=== PATIENT | male | born 1960 | race Caucasian/White ===

== ENCOUNTER 2024-09-29 10:46 | Inpatient (IN) ==
--- NOTE | 2024-09-29 11:06 | Emergency Department Note ---
Impression & Plan Symptomatic anemia, Acute on chronic blood loss anemia, GI bleed ED Provider Note NAME: CHARLETTE WRIGHT AGE: 64 SEX: M : 1960 ARRIVES VIA: Walk-In INFORMANT: Patient ED PROVIDER(S): Arthur Ambrocio DO CHIEF COMPLAINT: Black stools HPI: Patient is a 64-year-old male who presents ER for black stools which have been present for the past 3 weeks. He has a history of CML which was new in onset. He admits to worsening shortness of breath with exertion. He has coughed up a little bit of blood intermittently. Denies any blood thinners. No belly pain. No nausea, vomiting, or diarrhea. No dysuria, urgency, or frequency. No other exacerbating or remitting factors. ADDITIONAL HISTORY OBTAINED: Per HPI Chronic Medical/Social Conditions Affecting Care: Per HPI PAST MEDICAL HISTORY:See Below PAST SURGICAL HISTORY:See Below FAMILY HISTORY:See Below SOCIAL HISTORY:See Below HOME MEDICATIONS:See Below ALLERGIES:See Below VITALS:See Below PHYSICAL EXAMINATION: GENERAL: Sitting up in bed, alert, well appearing, well nourished, no distress, non-toxic EYE EXAM: normal conjunctiva. OROPHARYNX: mucous membranes are moist NECK: supple, no nuchal rigidity, no adenopathy, non-tender LUNGS: Clear to auscultation. Normal chest wall mechanics HEART: no murmurs, S1 normal and S2 normal ABDOMEN: abdomen soft, non-tender, normo-active bowel sounds, no masses, no rebound or guarding. RECTAL: HEM + black stool UPPER EXTREMITIES: upper extremities are grossly normal. LOWER EXTREMITIES: No pitting edema. NEURO EXAM: Normal sensorium, cranial nerves II-XII grossly intact, normal speech, no gross weakness of arms, no gross weakness of legs. MEDICAL DECISION MAKING: Patient is a 64-year-old male who presents ER for above-stated complaint. IV was established and blood work was obtained. Labs showed no significant leukocytosis. Mild anemia at 7.6 without previous to compare to. INR unremarkable. BMP with LFTs bilirubin and troponin was negative. Patient was typed and screened. He was placed on Protonix drip and bolus. Discussed case with the hospitalist for further evaluation management treatment. Consults/Care Managements Discussions: Per [facility] Triage Nursing notes reviewed. Limited review of prior medical records performed Vital Signs: reviewed and remarkable for no significant abnormalities Differential diagnosis: Differential diagnosis includes etiologies such as diverticulitis, diverticulosis, AVM, coagulopathy, colitis, inflammatory bowel disease, malignancy, Ann-Man tear, esophagitis, peptic ulcer disease, variceal bleed, gastritis, epistaxis, fissure, hemorrhoids, as well as others were entertained. ER treatment provided: See below Diagnostics interpreted by me include EKG and cardiac monitoring as listed below: -Cardiac Monitoring: An order was placed for continuous cardiac monitoring. The monitor shows a rate of 70 with sinus rhythm. -ECG: Sinus rhythm rate of 65 Normal axis No PVCs QTc 407 -Laboratory studies:Interpreted by me as stated above in MDM and shown below. Imaging studies: Xrays: As interpreted by me: Portable AP upright 1 view of the chest shows no focal Lutrate CTs show: none Procedures:none Critical Care: None Past Med/Surg History Problem List (Updated 09/29/24 @ 14:43 by Arthur Ambrocio DO) GI bleed (Acute) Symptomatic anemia (Acute) Epigastric pain Acute on chronic blood loss anemia (Acute) Dyspnea Medical History (Updated 09/29/24 @ 14:43 by Arthur Ambrocio DO) Eosinophilic asthma Prediabetes CKD (chronic kidney disease), stage III Chronic respiratory failure with hypoxia, on home O2 therapy Pulmonary fibrosis HTN (hypertension) Sleep apnea Iron deficiency anemia Chronic myeloid leukemia (CML), BCR/ABL-positive Surgical History (Updated 09/07/24 @ 12:04 by Rosi Cotto LPN) H/O colonoscopy 10+ yrs ago Social History (Updated 09/07/24 @ 12:05 by Rosi Cotto LPN) Smoking Status: Never smoker Do You Dip or Chew Tobacco: No; Hx Substance Use: No Shipwright Required: No Beliefs That Will Affect Care: None Feels Safe at Home: Yes Allergies Allergies Allergy/AdvReac Type Severity Reaction Status Date / Time bee venom protein (honey bee) Allergy Severe edema all Verified 09/29/24 11:33 over body modafinil Allergy Severe hallucinati Verified 09/29/24 11:33 ons atenolol Allergy Mild Verified 09/29/24 11:33 lisinopril AdvReac COUGH Unverified 09/29/24 11:33 Home Meds Home Medications Medication Instructions Recorded Confirmed allopurinol 300 mg tablet 300 mg PO QAM 09/07/24 09/29/24 amlodipine 5 mg tablet 2.5 mg PO BID 09/07/24 09/29/24 ascorbate calcium (vitamin C) 500 500 mg PO DAILY 09/07/24 09/29/24 mg tablet aspirin 81 mg chewable tablet 81 mg PO DAILY 09/07/24 09/29/24 carvedilol 6.25 mg tablet 6.25 mg PO BID 09/07/24 09/29/24 diphenoxylate-atropine 2.5 1 tab PO QID PRN diarrhea 09/07/24 09/29/24 mg-0.025 mg tablet escitalopram oxalate 10 mg tablet 10 mg PO DAILY 09/07/24 09/29/24 lorazepam 1 mg tablet 0.5 mg PO TID PRN Anxiety 09/07/24 09/29/24 metformin 500 mg tablet 500 mg PO BID 09/07/24 09/29/24 multivitamin 1 tab PO DAILY 09/07/24 09/29/24 omeprazole 40 mg capsule,delayed 40 mg PO DAILYBB 09/07/24 09/29/24 release tamsulosin 0.4 mg capsule (Flomax) 0.4 mg PO QAM 09/07/24 09/29/24 valsartan 320 mg tablet 320 mg PO QAM 09/07/24 09/29/24 albuterol sulfate 90 mcg/actuation 1 puff inhalation QID PRN 09/29/24 09/29/24 aerosol inhaler Shortness Of Breath Or Wheezing atorvastatin 20 mg tablet 20 mg PO QAM 09/29/24 09/29/24 chlorthalidone 25 mg tablet 25 mg PO QAM 09/29/24 09/29/24 ferrous sulfate 325 mg (65 mg 325 mg PO DAILY 09/29/24 09/29/24 iron) tablet venlafaxine 37.5 mg 37.5 mg PO QAM 09/29/24 09/29/24 capsule,extended release 24 hr Results & Data (ED) Vital Signs Vital Signs - 24 hr 09/29/24 10:50 09/29/24 11:12 09/29/24 11:15 Temperature 36.8 C Temperature Source Oral Pulse Rate 70 63 Pulse Rate [Apical] Respiratory Rate 18 Respiratory Effort / Characteristics Respiratory Depth Blood Pressure 120/70 Blood Pressure [Right Arm] Blood Pressure Mean 86 Blood Pressure Mean [Right Arm] Blood Pressure Position Sitting Blood Pressure Position [Right Arm] Pulse Oximetry 95 96 Oxygen Delivery Method Room Air Room Air Sepsis Recent Fever Within 48 Hours No Sepsis New/Unexplained Change in Mental Status No Sepsis Action Taken by Nursing No Action Required 09/29/24 12:47 Temperature Temperature Source Pulse Rate Pulse Rate [Apical] 63 Respiratory Rate 14 Respiratory Effort / Characteristics Non-Labored Spontaneous Respiratory Depth Normal Blood Pressure Blood Pressure [Right Arm] 148/83 H Blood Pressure Mean Blood Pressure Mean [Right Arm] 104 Blood Pressure Position Blood Pressure Position [Right Arm] Semi-fowlers Pulse Oximetry 99 Oxygen Delivery Method Room Air Sepsis Recent Fever Within 48 Hours Sepsis New/Unexplained Change in Mental Status Sepsis Action Taken by Nursing Laboratory Data 09/29/24 11:03 09/29/24 11:03 Lab Results 09/29/24 09/29/24 09/29/24 Range/Units 11:03 11:06 13:51 WBC 9.71 (4.8-10.8) K/ul RBC 2.36 L (4.70-6.10) M/uL Hgb 7.6 L (14.0-18.0) g/dl Hct 22.7 L (42.0-52.0) % MCV 96.2 (80.0-100.0) fL MCH 32.2 (25.0-34.0) pg MCHC 33.5 (32.0-36.0) g/dL RDW Std Deviation 58.9 H (36.4-46.3) fL RDW Coeff of Lyudmila 17.0 H (11.5-14.5) % Plt Count 288 (130-400) K/uL MPV 8.8 L (9.4-12.4) fL Immature Gran % (Auto) 2.6 % Neut % (Auto) 68.0 % Lymph % (Auto) 13.3 % [place] % (Auto) 11.3 % Eos % (Auto) 4.1 % Baso % (Auto) 0.7 % Reticulocyte % (Auto) 5.46 H (0.50-2.00) % Neut # (Auto) 6.60 H (1.40-6.50) K/uL Lymph # (Auto) 1.29 (1.20-3.40) K/uL [place] # (Auto) 1.10 H (0.11-0.59) K/uL Eos # (Auto) 0.40 (0.00-0.50) K/uL Baso # (Auto) 0.07 (0.00-0.20) K/uL Reticulocyte # 0.130 H (0.020-0.100) 10^6/uL Immature Gran # (Auto) 0.25 H (0.01-0.20) K/uL Polychromasia 1+ Immature Retic Fraction 24.8 H (2.3-15.9) % Retic Hgb Content 31.5 (28.2-36.6) pg PT 11.2 (9.0-12.0) Seconds INR 1.0 (0.9-1.1) Sodium 140 (136-145) mmol/L Potassium 3.8 (3.5-5.1) mmol/L Chloride 107 (98-107) mmol/L Carbon Dioxide 27 (21-32) mmol/L Anion Gap 6 (3-11) BUN 20 (6-23) mg/dl Creatinine 1.35 (0.6-1.4) mg/dl Est Cr Clr Drug Dosing 59.5 ml/min eGFR 57.90 BUN/Creatinine Ratio 14.8 (10-20) Glucose 125 H (70-99(Fasting)) mg/dl Calcium 9.7 (8.6-10.3) mg/dl Phosphorus 3.0 (2.5-4.9) mg/dl Magnesium 1.8 (1.7-2.4) mg/dl Iron 80 (35-175) mcg/dl TIBC 252 (250-450) mcg/dl Transferrin 180 L (200-360) mg/dl Transferrin % Sat 32 (20-50) % Ferritin 553.8 H (8-388) ng/ml Total Bilirubin 0.5 (0.2-1.0) mg/dl AST 16 (13-39) U/L ALT 14 (7-52) U/L Alkaline Phosphatase 107 H (34-104) U/L Lactate Dehydrogenase 184 (86-244) U/L Troponin I High Sens 4.4 (0-20) pg/ml Total Protein 7.5 (6.0-8.3) gm/dl Albumin 4.2 (3.4-5.0) gm/dl Globulin 3.3 (2.5-4.0) gm/dl Albumin/Globulin Ratio 1.3 (0.9-2) Lipase 118 H (11-82) U/L Vitamin B12 300 (180-914) pg/ml Folate 16.28 (>5.38) ng/ml Blood Type B Positive Blood Type Recheck B Positive Antibody Screen NEGATIVE Crossmatch See Detail Administered Medications Pantoprazole Sodium 40 mg/ (Dextrose) 100 mls @ 20 mls/hr IV Q5H ART Stop: 10/29/24 11:29 Last Admin: 09/29/24 11:54 Dose: 8 mg/hr, 20 mls/hr Documented By: RENETTA Sodium Chloride (Nss) 1,000 mls @ 80 mls/hr IV .[id number] ART Stop: 10/02/24 13:44 Last Admin: 09/29/24 14:23 Dose: 80 mls/hr Documented By: DANAE Discontinued Medications Pantoprazole Sodium 80 mg/ (Dextrose) 120 mls @ 480 mls/hr IV NOW ONE Stop: 09/29/24 11:16 Last Infusion: 09/29/24 11:54 Dose: Infused Documented By: Admin: 09/29/24 11:36 Dose: 480 mls/hr Documented By: RENETTA Pantoprazole Sodium (Pantoprazole Bolus/Drip) 1 each IV NOW STA Stop: 09/29/24 11:03 Last Admin: 09/29/24 11:34 Dose: Not Given Documented By: RENETTA Imaging Data Radiologist's Impression: Chest X-Ray 09/29/24 11:02 XR chest 1V portable HISTORY: 64 years-old Male Chest pain, nonspecific acute chest pain COMPARISON: None TECHNIQUE: AP view of the chest FINDINGS: Cardiac silhouette is upper limits of normal in size. No pneumothorax, pleural effusion or lobar airspace consolidation. Nonspecific interstitial coarsening. Cervical spinal fusion hardware. Bones appear grossly intact. IMPRESSION: 1. Cardiomegaly without overt pulmonary edema. 2. Nonspecific coarsening of the interstitium is likely chronic, however progressed from 2009. ACT 112: Negative or not required by law. The above report was generated using voice recognition software. It may contain grammatical, syntax or spelling errors. Electronically signed by: Anson Cortez M.D. 09/29/2024 11:34 AM Discharge Plan Visit Data Chief Complaint: Abnormal Labs/Diagnostic Testing Stated Complaint: REF BY DOC, ANEMIA, BLACK STOOL, TROUBLE BREATHING ED Provider: Arthur Ambrocio Discharge Problem: Symptomatic anemia, Acute on chronic blood loss anemia, GI bleed Condition: Fair Forms Stand Alone Forms: [facility] Prescriptions Prescriptions: No Action allopurinol 300 mg tablet 300 mg PO QAM amlodipine 5 mg tablet 2.5 mg PO BID Patient Comments: Originally written for 5mg by mouth daily. Spouse states pt takes 2.5mg by mouth twice daily - 09/29/24 aspirin 81 mg tablet,chewable 81 mg PO DAILY carvedilol 6.25 mg tablet 6.25 mg PO BID Rx Instructions: must administer with a meal/food diphenoxylate-atropine 2.5-0.025 mg tablet 1 tab PO QID PRN (Reason: diarrhea) escitalopram oxalate 10 mg tablet 10 mg PO DAILY tamsulosin [Flomax] 0.4 mg capsule 0.4 mg PO QAM lorazepam 1 mg tablet 0.5 mg PO TID PRN (Reason: Anxiety) metformin 500 mg tablet 500 mg PO BID Patient Comments: Originally written for 500mg by mouth daily. Spouse states pt takes 500mg by mouth twice daily - 09/29/24 multivitamin Tablet 1 tab PO DAILY omeprazole 40 mg capsule,delayed release(DR/EC) 40 mg PO DAILYBB valsartan 320 mg tablet 320 mg PO QAM ascorbate calcium (vitamin C) 500 mg tablet 500 mg PO DAILY venlafaxine 37.5 mg capsule,extended release 24hr 37.5 mg PO QAM atorvastatin 20 mg tablet 20 mg PO QAM chlorthalidone 25 mg tablet 25 mg PO QAM ferrous sulfate 325 mg (65 mg iron) Tablet 325 mg PO DAILY albuterol sulfate 90 mcg/actuation Hfa Aerosol Inhaler 1 puff INHALATION QID PRN (Reason: Shortness Of Breath Or Wheezing) Referrals Referrals: PCP,NO [Physician] - Discharge Problem: GI bleed Qualifiers: GI bleed type/associated pathology: unspecified gastrointestinal hemorrhage type Qualified Code(s): K92.2 - Gastrointestinal hemorrhage, unspecified
[2024-09-29 11:21] LABS: Hematocrit (blood only) 22.7 % (42.0-52.0); Hemoglobin 7.6 g/dl (14.0-18.0); Immature Granulocytes # (auto) 0.25 K/uL (0.01-0.20); Immature Granulocytes % (auto) 2.6 %; Mean Corpuscular Hemoglobin 32.2 pg (25.0-34.0); Mean Corpuscular Volume 96.2 fL (80.0-100.0); Platelet Count 288 K/uL (130-400); RDW Standard Deviation 58.9 fL (36.4-46.3); Red Blood Count 2.36 M/uL (4.70-6.10); White Blood Count 9.71 K/ul (4.8-10.8)
[2024-09-29] MEDS: PANTOPRAZOLE BOLUS/DRIP IV STA (11:34)
--- NOTE | 2024-09-29 11:35 | XRay Report ---
XR chest 1V portable HISTORY: 64 years-old Male Chest pain, nonspecific acute chest pain COMPARISON: None TECHNIQUE: AP view of the chest FINDINGS: Cardiac silhouette is upper limits of normal in size. No pneumothorax, pleural effusion or lobar airs pace consolidation. Nonspecific interstitial coarsening. Cervical spinal fusion hardware. Bones appea r grossly intact. IMPRESSION: 1. Cardiomegaly without overt pulmonary edema. 2. Nonspecific coarsening of the interstitium is likely chronic, however progressed from 2009. ACT 112: Negative or not required by law. The above report was generated using voice recognition software. It may contain grammatical, syntax o r spelling errors. Electronically signed by: Anson Cortez M.D. 09/29/2024 11:34 AM
[2024-09-29 11:39] LABS: Alanine Aminotransferase 14.0 U/L (7-52); Albumin Globulin Ratio 1.3 (0.9-2); Alkaline Phosphatase 107.0 U/L (34-104); Anion Gap 6.0 (3-11); Bilirubin,Total 0.5 mg/dl (0.2-1.0); Blood Urea Nitrogen 20.0 mg/dl (6-23); Calcium 9.7 mg/dl (8.6-10.3); Carbon Dioxide 27.0 mmol/L (21-32); Chloride 107.0 mmol/L (98-107); Creatinine Clr Calc Pharmacy 59.5 ml/min; Globulin 3.3 gm/dl (2.5-4.0); Glucose 125.0 mg/dl (70-99(Fasting)); Lipase 118.0 U/L (11-82); Potassium 3.8 mmol/L (3.5-5.1); Sodium 140.0 mmol/L (136-145); Total Protein 7.5 gm/dl (6.0-8.3)
[2024-09-29 11:49] LABS: INR 1.0 (0.9-1.1); Prothrombin Time 11.2 Seconds (9.0-12.0)
[2024-09-29 11:50] LABS: Polychromasia 1+
--- NOTE | 2024-09-29 11:52 | History & Physical Report ---
Date of Service September 29, 2024 Assessment & Plan (1) Acute on chronic blood loss anemia: (2) Epigastric pain: (3) Dyspnea: Plan Mr. Jose L Means is a 63 year old gentleman with past history remarkable for HTN, HLD, CAD s/p MT (2007, 2015), CML, nephrolithiasis, CKD III, eosinopenic asthma with pulm fibrosis, LA, chronic hypoxic resp failure on 2-3L exertionally, presented to [facility] ED due to worsening weakness and SOB, as well as abnormal outpatient labs. Patient with remote history of peptic ulcer disease, reporting postprandial epigastric discomfort. Suspect peptic ulcer disease v gastritis potentially contributing to slow ongoing anemia. #Acute on chronic anemia, suspect UGIB #Remote history of peptic ulcer disease hgb baseline prior to June 01, 7.2 on OSH labs on 09/27 B12 468,TSH 2.29 No recent iron studies, FOBT + in ED given CAD, MCKEON, and chest pressure on exertion, will transfuse for hgb goal > 8 Trend H&H, repeat at 1800 CLD for now GI consult Given recent OSH abdominal imaging and stable hgb from 09/27, will hold on imaging at this time Gastroenterology consult for question of possible EGD continue PPI drip Anemia labs for optimization Gentle IVF at this time #CML #Chronic Iron deficiency anemia follow [facility] for oncologic care Ferahema infusions Asciminib 40mg BID (22,000/copay), advised to bring in WBC stable on admission labs #CKD III roughly 1.4 this last year for baseline, GFR in mid 40s-50s stable at 1.35 Trend bmp #Gout continue allopurinol 300mg daily #Prediabetes A1C 5.9 07/2024 hold on sliding scale at this time #Chronic hypoxic respiratory, 2-3L on exertion #eosinophilic interstitial pneumonitis continue albuterol prn hasnt started dupixent O2 prn #LA cpap with 4-5L #BPH/LUTS flomax 0.4mg , no improvement working to follow up urology; needs help coordinating appointment prior to dispo #HTN Hold chlorthalidone 25mg, resume when able continue amlodipine 2.5mgbid continue coreg 6.25mg bid continue valsartan 320mg with hold parameters <120 #CAD s/p MT holding asa iso c/f gib no stents in place continue statin #Anxiety/depression Continue ativan prn continue venlafaxine DVT Scds Full code Admit med/tele PCP Boogie Dsouza PA-C Admission and Anticipated Discharge Date Admission Date: Time spent evaluating patient, direct bedside care, chart review, placing orders, interpretation of diagnostic studies, discussion with consultants, patient, and family members, as well as other required patient management activities is 75 minutes. History of Present Illness Chief Complaint: black stool Primary Care Provider: Boogie Dsouza PA-C Mr. Jose L Means is a 63 year old gentleman with past history remarkable for HTN, HLD, CAD s/p MT (2007, 2015), CML, nephrolithiasis, CKD III, eo sinopenic asthma with pulm fibrosis, chronic hypoxic resp failure on 2-3L exertionally, presented to [facility] ED due to worsening weakness and SOB, as well as abnormal outpatient labs. Patient states that he has been experiencing progressive epigastric discomfort for weeks, marked by discomfort postprandially. In this time, he states his bowels have been intermittently black and less formed, often diarrhea, in the last month. At his visit with Oncology on 09/06, it is noted that patient states "is it possible there is something else going on than what [he] has?" in regards to epigastric pain. He has history of ulcers and underwent GI eval over 15 years ago. The EGD at that time revealed a small ulcer and was no bleeding at that time. He reports that he underwent a contrasted CT ab/p at that time which "didn't show anything alarming" per patient. Patient reports weight gain, but notes he has a loss of appetite. This morning his stool was brown and formed--but its persistently alternating. In August, his labs revealed a new anemia, from a baseline of 12 down to 9, and more recently 7.2 on labs 09/27. He states he has been more lightheaded in this time and experiencing more MCKEON. He reports intermittent chest tightness in this time as well. He initially thought this was related to his lung disease, however, albuterol did not provide any relief. He has yet to start Dupixent injections for his asthma He follows [facility]. He started a new med asciminib bid for CML. Patient reports remote history of Peptic ulcer disease and underwent EGD >15 years ago--he has remained on a ppi since. He had a colonoscopy in 2023, which noted diverticulosis. Denies etoh, tobacco, or illicits. Lives at home with who was at bedside. In the ED, vitals were notable for BP of 120-140s HR of 60-70s and O2 sat of mid-high 90s on room air EKG QTc of 407, Normal sinus, no ST changes noted ED interventions: PPI drip Patient to be admitted to med-surg for further evaluation and management of acute on chronic anemia with c/f UGIB Allergies Allergy/AdvReac Type Severity Reaction Status Date / Time bee venom protein (honey bee) Allergy Severe edema all Verified 09/29/24 11:33 over body modafinil Allergy Severe hallucinati Verified 09/29/24 11:33 ons atenolol Allergy Mild Verified 09/29/24 11:33 lisinopril AdvReac COUGH Unverified 09/29/24 11:33 Home Medications Medication Instructions Recorded Confirmed Type allopurinol 300 mg tablet 300 mg PO QAM 09/07/24 09/29/24 History amlodipine 5 mg tablet 2.5 mg PO BID 09/07/24 09/29/24 History ascorbate calcium (vitamin C) 500 500 mg PO DAILY 09/07/24 09/29/24 History mg tablet aspirin 81 mg chewable tablet 81 mg PO DAILY 09/07/24 09/29/24 History carvedilol 6.25 mg tablet 6.25 mg PO BID 09/07/24 09/29/24 History diphenoxylate-atropine 2.5 1 tab PO QID PRN diarrhea 09/07/24 09/29/24 History mg-0.025 mg tablet escitalopram oxalate 10 mg tablet 10 mg PO DAILY 09/07/24 09/29/24 History lorazepam 1 mg tablet 0.5 mg PO TID PRN Anxiety 09/07/24 09/29/24 History metformin 500 mg tablet 500 mg PO BID 09/07/24 09/29/24 History multivitamin 1 tab PO DAILY 09/07/24 09/29/24 History omeprazole 40 mg capsule,delayed 40 mg PO DAILYBB 09/07/24 09/29/24 History release tamsulosin 0.4 mg capsule (Flomax) 0.4 mg PO QAM 09/07/24 09/29/24 History valsartan 320 mg tablet 320 mg PO QAM 09/07/24 09/29/24 History albuterol sulfate 90 mcg/actuation 1 puff inhalation QID PRN 09/29/24 09/29/24 History aerosol inhaler Shortness Of Breath Or Wheezing atorvastatin 20 mg tablet 20 mg PO QAM 09/29/24 09/29/24 History chlorthalidone 25 mg tablet 25 mg PO QAM 09/29/24 09/29/24 History ferrous sulfate 325 mg (65 mg 325 mg PO DAILY 09/29/24 09/29/24 History iron) tablet venlafaxine 37.5 mg 37.5 mg PO QAM 09/29/24 09/29/24 History capsule,extended release 24 hr Past Med/Surg History Problem List (Updated 09/29/24 @ 13:40 by Melissa James MD) Epigastric pain Acute on chronic blood loss anemia Dyspnea Medical History (Updated 09/29/24 @ 13:40 by Melissa James MD) Eosinophilic asthma Prediabetes CKD (chronic kidney disease), stage III Chronic respiratory failure with hypoxia, on home O2 therapy Pulmonary fibrosis HTN (hypertension) Sleep apnea Iron deficiency anemia Chronic myeloid leukemia (CML), BCR/ABL-positive Surgical History (Updated 09/07/24 @ 12:04 by Rosi Cotto LPN) H/O colonoscopy 10+ yrs ago Social History (Updated 09/07/24 @ 12:05 by Rosi Cotto LPN) Smoking Status: Never smoker Do You Dip or Chew Tobacco: No; Hx Substance Use: No Power Checker Required: No Beliefs That Will Affect Care: None Feels Safe at Home: Yes Review of Systems Review of Systems: Constitutional: (-) fever/chills, (-) recent loss of weight, (+) appetite changes, (-) night sweats. Head: (-) headache, (-) dizziness. Eye: (-) blurring of vision, (-) double vision, (-) redness. Ear: (-) hearing loss, (-) discharge, (-) vertigo Nose: (-) discharge, (-) bleeding, (-) congestion, (-) post nasal drip. Throat: (-) sore throat, (-) hoarseness of voice, (-) odynophagia. Cardiovascular: (+) chest pain, (-) palpitations, (-) syncope, (-) orthopnea, (- ) PND, (-) leg swelling. Respiratory: (+) shortness of breath, (-) cough, (-) wheezing, (-) hemoptysis. Neuro: (-) weakness in extremities, (-) numbness, (-) tingling, (-) tremor. Gastrointestinal: (+ belly pain, (+) belly distension, (-) nausea, (-) vomiting, (+) diarrhea, (-) constipation Genitourinary: (-) hematuria, (-) dysuria, (-) polyuria, (+) hesitancy, (-) frequency, (-) urinary incontinence. Musculoskeletal: (-) myalgia, (-) arthralgia. Skin: (-) rashes. Endocrine: (-) heat/cold intolerance. Psychiatry: (-) depression, (-) hallucination. Physical Exam Physical Exam: GENERAL APPEARANCE: AxOx4, generally well-appearing gentleman, no acute distress on exam HEENT: NC, AT. MMM. EOMI, pale conjunctiva, oropharynx clear. NECK: Supple without lymphadenopathy. No stiffness or restricted ROM. HEART: Normal rate and regular rhythm, normal S1/S1, no m/r/g LUNGS: CTAB, moving air well. No crackles or wheezes are heard. ABDOMEN: Soft, mild tenderness on deep palpation in epigastric region with good bowel sounds heard. BACK: No CVAT, no obvious deformity. EXTREMITIES: Without cyanosis, clubbing or edema. NEUROLOGICAL: Grossly nonfocal. Alert and oriented, moving all 4 extremities. CN not formally tested but appear grossly intact Skin: Warm and dry without any rash. Results & Data Results & Data Vital Signs (Past 12 Hours) Vital Signs Temp Pulse Resp BP Pulse Ox O2 Del Method 09/29/24 11:15 63 09/29/24 11:12 96 Room Air 09/29/24 10:50 36.8 C 70 18 120/70 95 Room Air Laboratory Results Short CBC 09/29/24 Range/Units 11:03 WBC 9.71 (4.8-10.8) K/ul Hgb 7.6 L (14.0-18.0) g/dl Hct 22.7 L (42.0-52.0) % Plt Count 288 (130-400) K/uL BMP 09/29/24 11:03 Sodium 140 Potassium 3.8 Chloride 107 Carbon Dioxide 27 BUN 20 Creatinine 1.35 Glucose 125 H Calcium 9.7 Liver Function 09/29/24 Range/Units 11:03 Total Bilirubin 0.5 (0.2-1.0) mg/dl AST 16 (13-39) U/L ALT 14 (7-52) U/L Alkaline Phosphatase 107 H (34-104) U/L Albumin 4.2 (3.4-5.0) gm/dl Diagnostic Findings Reviewed colonoscopy 2023: diverticula, no endoscopic evidence of bleeding mass, inflammation, polyps, stenosis or ulcerations Medications Administered Home Medications Medication Instructions Recorded Confirmed Last Taken allopurinol 300 mg tablet 300 mg PO QAM 09/07/24 09/29/24 09/29/24 amlodipine 5 mg tablet 2.5 mg PO BID 09/07/24 09/29/24 09/29/24 ascorbate calcium (vitamin C) 500 500 mg PO DAILY 09/07/24 09/29/24 Unknown mg tablet aspirin 81 mg chewable tablet 81 mg PO DAILY 09/07/24 09/29/24 Unknown carvedilol 6.25 mg tablet 6.25 mg PO BID 09/07/24 09/29/24 09/29/24 diphenoxylate-atropine 2.5 1 tab PO QID PRN diarrhea 09/07/24 09/29/24 Unknown mg-0.025 mg tablet escitalopram oxalate 10 mg tablet 10 mg PO DAILY 09/07/24 09/29/24 Unknown lorazepam 1 mg tablet 0.5 mg PO TID PRN Anxiety 09/07/24 09/29/24 Unknown metformin 500 mg tablet 500 mg PO BID 09/07/24 09/29/24 09/29/24 multivitamin 1 tab PO DAILY 09/07/24 09/29/24 Unknown omeprazole 40 mg capsule,delayed 40 mg PO DAILYBB 09/07/24 09/29/24 09/29/24 release tamsulosin 0.4 mg capsule (Flomax) 0.4 mg PO QAM 09/07/24 09/29/24 09/29/24 valsartan 320 mg tablet 320 mg PO QAM 09/07/24 09/29/24 09/29/24 albuterol sulfate 90 mcg/actuation 1 puff inhalation QID PRN 09/29/24 09/29/24 Unknown aerosol inhaler Shortness Of Breath Or Wheezing atorvastatin 20 mg tablet 20 mg PO QAM 09/29/24 09/29/24 09/29/24 chlorthalidone 25 mg tablet 25 mg PO QAM 09/29/24 09/29/24 09/29/24 ferrous sulfate 325 mg (65 mg 325 mg PO DAILY 09/29/24 09/29/24 Unknown iron) tablet venlafaxine 37.5 mg 37.5 mg PO QA 09/29/24 09/29/24 09/29/24 capsule,extended release 24 hr Active Medications Generic Name Dose Route Start Last Admin Trade Name Freq PRN Reason Stop Dose Admin Pantoprazole Sodium 40 mg/ 100 mls @ 20 mls/hr 09/29/24 11:30 09/29/24 11:54 Dextrose IV 10/29/24 11:29 8 mg/hr Q5H ART 20 mls/hr Administration 8 MG/HR
[2024-09-29] MEDS: PANTOprazole 40 MG in DEXTROSE 5% MINI-B 100 ML IV SCH (11:54)
[2024-09-29 12:09] LABS: Iron 80.0 mcg/dl (35-175); Magnesium 1.8 mg/dl (1.7-2.4); Total Iron Binding Cap Calc 252.0 mcg/dl (250-450); Transferrin 180.0 mg/dl (200-360); Transferrin (FE) Percent Satur 32.0 % (20-50)
[2024-09-29 12:15] LABS: Reticulated Hemoglobin 31.5 pg (28.2-36.6); Reticulocytes # 0.130 10^6/uL (0.020-0.100)
[2024-09-29 12:30] LABS: Ferritin 553.8 ng/ml (8-388)
[2024-09-29] MEDS ORDERED: SODIUM CHLORIDE 0.9% 100 ML IV PRN (12:39)
[2024-09-29 12:48] LABS: Folate (Folic Acid),Ser orPlas 16.28 ng/ml (>5.38)
[2024-09-29 12:49] LABS: Vitamin B12 300.0 pg/ml (180-914)
[2024-09-29] MEDS: SODIUM CHLORIDE 0.9% 1,000 ML IV SCH (14:23)
[2024-09-29] MEDS ORDERED: MELATONIN 3 MG TAB PO PRN (15:52)
[2024-09-29] MEDS ORDERED: LORazepam 0.5 MG TAB PO PRN (15:52)
[2024-09-29] MEDS ORDERED: ALBUTEROL HFA 8 GM INHALER INH PRN (15:52)
[2024-09-29] MEDS ORDERED: ONDANSETRON INJ 2 MG/ML 2 ML VIAL IV PRN (15:52)
[2024-09-29] MEDS ORDERED: ACETAMINOPHEN 325 MG TAB PO PRN (15:52)
[2024-09-29 18:30] LABS: Hematocrit (blood only) 24.0 % (42.0-52.0); Hemoglobin 8.1 g/dl (14.0-18.0)
[2024-09-29 21:59] LABS: Appearance Urine Clear (Clear); Bacteria Urine Automated None Seen (None Seen); Epithelial Cell Urine Auto 0-2 /hpf (0-2); Glucose Urine UA Negative (Negative); RBC Urine Automated 0-2 /hpf (0-2)
[2024-09-30 07:24] LABS: Hematocrit (blood only) 21.6 % (42.0-52.0); Hemoglobin 7.7 g/dl (14.0-18.0); Mean Corpuscular Hemoglobin 32.5 pg (25.0-34.0); Mean Corpuscular Volume 91.1 fL (80.0-100.0); Platelet Count 260 K/uL (130-400); RDW Standard Deviation 62.1 fL (36.4-46.3); Red Blood Count 2.37 M/uL (4.70-6.10); White Blood Count 8.86 K/ul (4.8-10.8)
[2024-09-30] MEDS: ATORVASTATIN 20 MG TAB PO SCH (07:45)
[2024-09-30] MEDS: ESCITALOPRAM OXALATE 10 MG TAB PO SCH (07:46)
[2024-09-30] MEDS: VENLAFAXINE HCL XR 37.5 MG CAPXR PO SCH (07:46)
[2024-09-30] MEDS: VALSARTAN 80 MG TAB PO SCH (07:47)
[2024-09-30] MEDS: TAMSULOSIN HCL 0.4 MG CAP PO SCH (07:57)
[2024-09-30 08:01] LABS: Anion Gap 6.0 (3-11); Blood Urea Nitrogen 16.0 mg/dl (6-23); Calcium 8.9 mg/dl (8.6-10.3); Carbon Dioxide 26.0 mmol/L (21-32); Chloride 107.0 mmol/L (98-107); Creatinine Clr Calc Pharmacy 72.4 ml/min; Glucose 119.0 mg/dl (70-99(Fasting)); Magnesium 1.5 mg/dl (1.7-2.4); Potassium 3.9 mmol/L (3.5-5.1); Sodium 139.0 mmol/L (136-145)
--- NOTE | 2024-09-30 09:19 | Gastrointestinal Consultation ---
Date of Consultation September 30, 2024 Assessment & Plan (1) Epigastric pain: Pleasant man with a history of CML and fe deficiency anemia admitted with epigastric distress and anemia. I see no indication he has had a GI bleed although he reports dark stools he was on iron. I suspect his symptoms are rela prisca to his meds directed at his CML as Gleevec can cause both of these. I am unaware if aciminib can cause these issues although it is reported to cause some abdominal issues. He does not really have risk for ulcer disease and does take omeprazole but we will go ahead and plan to do EGD tomorrow. He agrees. History of Present Illness Reason for Consultation: epigastric pain, anemia Attending Physician: Jose M Salcido, History of Present Illness 64 year old man with CML and chronic iron deficiency anemia both of which he sees hematology for admitted with epigastric pain for three weeks and anemia. He reports dark stools but does take iron supplements. He says that yesterday on admit was the first day he had a normal colored bowel movement in three weeks. He describes his pain very vaguely but indicates the upper abdomen/lower chest region. Eating does not make the pain worse or better but he says he doesn't have the appetite he has had in the past. He has gained 29 pounds over the past year though. He had a colonoscopy last year that he says was normal. He does not recall having an EGD for his anemia in the past. He takes omeprazole daily and denies NSAIDs. He was being treated with Gleevec at maximum dose which can cause epigastric distress and anemia. He was switched to another med in mid August. Allergies Allergy/AdvReac Type Severity Reaction Status Date / Time bee venom protein (honey bee) Allergy Severe edema all Verified 09/29/24 11:33 over body modafinil Allergy Severe hallucinati Verified 09/29/24 11:33 ons atenolol Allergy Mild Verified 09/29/24 11:33 lisinopril AdvReac COUGH Unverified 09/29/24 11:33 Home Medications Medication Instructions Recorded Confirmed Type allopurinol 300 mg tablet 300 mg PO QAM 09/07/24 09/29/24 History amlodipine 5 mg tablet 2.5 mg PO BID 09/07/24 09/29/24 History ascorbate calcium (vitamin C) 500 500 mg PO DAILY 09/07/24 09/29/24 History mg tablet aspirin 81 mg chewable tablet 81 mg PO DAILY 09/07/24 09/29/24 History carvedilol 6.25 mg tablet 6.25 mg PO BID 09/07/24 09/29/24 History diphenoxylate-atropine 2.5 1 tab PO QID PRN diarrhea 09/07/24 09/29/24 History mg-0.025 mg tablet escitalopram oxalate 10 mg tablet 10 mg PO DAILY 09/07/24 09/29/24 History lorazepam 1 mg tablet 0.5 mg PO TID PRN Anxiety 09/07/24 09/29/24 History metformin 500 mg tablet 500 mg PO BID 09/07/24 09/29/24 History multivitamin 1 tab PO DAILY 09/07/24 09/29/24 History omeprazole 40 mg capsule,delayed 40 mg PO DAILYBB 09/07/24 09/29/24 History release tamsulosin 0.4 mg capsule (Flomax) 0.4 mg PO QAM 09/07/24 09/29/24 History valsartan 320 mg tablet 320 mg PO QAM 09/07/24 09/29/24 History albuterol sulfate 90 mcg/actuation 1 puff inhalation QID PRN 09/29/24 09/29/24 History aerosol inhaler Shortness Of Breath Or Wheezing atorvastatin 20 mg tablet 20 mg PO QAM 09/29/24 09/29/24 History chlorthalidone 25 mg tablet 25 mg PO QAM 09/29/24 09/29/24 History ferrous sulfate 325 mg (65 mg 325 mg PO DAILY 09/29/24 09/29/24 History iron) tablet venlafaxine 37.5 mg 37.5 mg PO QAM 09/29/24 09/29/24 History capsule,extended release 24 hr Patient History Medical History Eosinophilic asthma Prediabetes CKD (chronic kidney disease), stage III Chronic respiratory failure with hypoxia, on home O2 therapy Pulmonary fibrosis HTN (hypertension) Sleep apnea Iron deficiency anemia Chronic myeloid leukemia (CML), BCR/ABL-positive Surgical History H/O colonoscopy 10+ yrs ago Social History Smoking Status: Never smoker Do You Dip or Chew Tobacco: No; Hx Alcohol Use: No Hx Substance Use: No Preferred Language: French Communication Ability: Effective Roadmaster Required: No Beliefs That Will Affect Care: None Current Living Situation: Spouse Other Information That Helps Us Care for You: No Feels Safe at Home: No Is there a partner from a previous relationship who is making you feel unsafe now?: No Any Concerns about Your Family Situation: No Would You Like to Speak to Someone About Your Situation: No Safety Concerns: Feels Safe At This Time Assistive Devices: Denture - Upper and Glasses Review of Systems Review of Systems: All systems reviewed & are unremarkable except as noted in HPI & below Physical Exam Physical Exam: Pleasant man in no distress Constitutional: WD/WN, vitals as above Neck: trachea midline, no thyromegaly Respiratory: normal respiratory effort, lungs clear to auscultation Cardiovascular: RRR, no murmur, no edema Gastrointestinal (Abdomen): normal bowel sounds, soft, nontender, no hepatosplenomegaly Results & Data Vital Signs (Past 12 Hours) Vital Signs Temp Pulse Pulse Resp BP Pulse Ox O2 Del Method 09/30/24 08:02 68 09/30/24 07:45 36.4 C L 71 18 124/72 94 Room Air 09/30/24 04:01 36.5 C 65 18 129/69 95 Room Air 09/29/24 22:34 36.5 C 64 18 118/68 94 Room Air 09/29/24 21:57 66 09/29/24 21:40 66 Laboratory Results 09/30/24 09/30/24 09/29/24 Range/Units 08:20 06:14 19:06 WBC 8.86 (4.8-10.8) K/ul RBC 2.37 L (4.70-6.10) M/uL Hgb 7.7 L (14.0-18.0) g/dl Hct 21.6 L (42.0-52.0) % MCV 91.1 D (80.0-100.0) fL MCH 32.5 (25.0-34.0) pg MCHC 35.6 (32.0-36.0) g/dL RDW Std Deviation 62.1 H (36.4-46.3) fL RDW Coeff of Lyudmila 18.8 H (11.5-14.5) % Plt Count 260 (130-400) K/uL MPV 9.3 L (9.4-12.4) fL Immature Gran % (Auto) % Neut % (Auto) % Lymph % (Auto) % [place] % (Auto) % Eos % (Auto) % Baso % (Auto) % Reticulocyte % (Auto) (0.50-2.00) % Neut # (Auto) (1.40-6.50) K/uL Lymph # (Auto) (1.20-3.40) K/uL [place] # (Auto) (0.11-0.59) K/uL Eos # (Auto) (0.00-0.50) K/uL Baso # (Auto) (0.00-0.20) K/uL Reticulocyte # (0.020-0.100) 10^6/uL Immature Gran # (Auto) (0.01-0.20) K/uL Polychromasia Immature Retic Fraction (2.3-15.9) % Retic Hgb Content (28.2-36.6) pg PT (9.0-12.0) Seconds INR (0.9-1.1) Sodium 139 (136-145) mmol/L Potassium 3.9 (3.5-5.1) mmol/L Chloride 107 (98-107) mmol/L Carbon Dioxide 26 (21-32) mmol/L Anion Gap 6 (3-11) BUN 16 (6-23) mg/dl Creatinine 1.11 (0.6-1.4) mg/dl Est Cr Clr Drug Dosing 72.4 ml/min eGFR 73.24 BUN/Creatinine Ratio 14.4 (10-20) Glucose 119 H (70-99(Fasting)) mg/dl POC Glucose 130 H (70-99) mg/dl Calcium 8.9 (8.6-10.3) mg/dl Phosphorus 3.2 (2.5-4.9) mg/dl Magnesium 1.5 L (1.7-2.4) mg/dl Iron (35-175) mcg/dl TIBC (250-450) mcg/dl Transferrin (200-360) mg/dl Transferrin % Sat (20-50) % Ferritin (8-388) ng/ml Total Bilirubin (0.2-1.0) mg/dl AST (13-39) U/L ALT (7-52) U/L Alkaline Phosphatase (34-104) U/L Lactate Dehydrogenase (86-244) U/L Troponin I High Sens (0-20) pg/ml Total Protein (6.0-8.3) gm/dl Albumin (3.4-5.0) gm/dl Globulin (2.5-4.0) gm/dl Albumin/Globulin Ratio (0.9-2) Lipase (11-82) U/L Vitamin B12 (180-914) pg/ml Folate (>5.38) ng/ml Urine Color Yellow Urine Appearance Clear (Clear) Urine pH 5.0 (4.5-7.5) Ur Specific [place] 1.016 (1.000-1.030) Urine Protein Negative (Negative) Urine Glucose (UA) Negative (Negative) Urine Ketones Negative (Negative) Urine Blood Negative (Negative) Urine Nitrite Negative (Negative) Urine Bilirubin Negative (Negative) Urine Urobilinogen Negative (Negative) Ur Leukocyte Esterase 1+ H (Negative) Urine WBC (Auto) 6-10 H (0-5) /hpf Urine RBC (Auto) 0-2 (0-2) /hpf U Hyaline Cast (Auto) 3-5 H (0-2) /lpf U Epithel Cells (Auto) 0-2 (0-2) /hpf Urine Bacteria (Auto) None Seen (None Seen) Urine Comment Blood Type Blood Type Recheck Antibody Screen Crossmatch 09/29/24 09/29/24 09/29/24 Range/Units 18:05 13:51 11:06 WBC (4.8-10.8) K/ul RBC (4.70-6.10) M/uL Hgb 8.1 L (14.0-18.0) g/dl Hct 24.0 L (42.0-52.0) % MCV (80.0-100.0) fL MCH (25.0-34.0) pg MCHC (32.0-36.0) g/dL RDW Std Deviation (36.4-46.3) fL RDW Coeff of Lyudmila (11.5-14.5) % Plt Count (130-400) K/uL MPV (9.4-12.4) fL Immature Gran % (Auto) % Neut % (Auto) % Lymph % (Auto) % [place] % (Auto) % Eos % (Auto) % Baso % (Auto) % Reticulocyte % (Auto) 5.46 H (0.50-2.00) % Neut # (Auto) (1.40-6.50) K/uL Lymph # (Auto) (1.20-3.40) K/uL [place] # (Auto) (0.11-0.59) K/uL Eos # (Auto) (0.00-0.50) K/uL Baso # (Auto) (0.00-0.20) K/uL Reticulocyte # 0.130 H (0.020-0.100) 10^6/uL Immature Gran # (Auto) (0.01-0.20) K/uL Polychromasia Immature Retic Fraction 24.8 H (2.3-15.9) % Retic Hgb Content 31.5 (28.2-36.6) pg PT (9.0-12.0) Seconds INR (0.9-1.1) Sodium (136-145) mmol/L Potassium (3.5-5.1) mmol/L Chloride (98-107) mmol/L Carbon Dioxide (21-32) mmol/L Anion Gap (3-11) BUN (6-23) mg/dl Creatinine (0.6-1.4) mg/dl Est Cr Clr Drug Dosing ml/min eGFR BUN/Creatinine Ratio (10-20) Glucose (70-99(Fasting)) mg/dl POC Glucose (70-99) mg/dl Calcium (8.6-10.3) mg/dl Phosphorus (2.5-4.9) mg/dl Magnesium (1.7-2.4) mg/dl Iron (35-175) mcg/dl TIBC (250-450) mcg/dl Transferrin (200-360) mg/dl Transferrin % Sat (20-50) % Ferritin (8-388) ng/ml Total Bilirubin (0.2-1.0) mg/dl AST (13-39) U/L ALT (7-52) U/L Alkaline Phosphatase (34-104) U/L Lactate Dehydrogenase 184 (86-244) U/L Troponin I High Sens (0-20) pg/ml Total Protein (6.0-8.3) gm/dl Albumin (3.4-5.0) gm/dl Globulin (2.5-4.0) gm/dl Albumin/Globulin Ratio (0.9-2) Lipase (11-82) U/L Vitamin B12 300 (180-914) pg/ml Folate 16.28 (>5.38) ng/ml Urine Color Urine Appearance (Clear) Urine pH (4.5-7.5) Ur Specific [place] (1.000-1.030) Urine Protein (Negative) Urine Glucose (UA) (Negative) Urine Ketones (Negative) Urine Blood (Negative) Urine Nitrite (Negative) Urine Bilirubin (Negative) Urine Urobilinogen (Negative) Ur Leukocyte Esterase (Negative) Urine WBC (Auto) (0-5) /hpf Urine RBC (Auto) (0-2) /hpf U Hyaline Cast (Auto) (0-2) /lpf U Epithel Cells (Auto) (0-2) /hpf Urine Bacteria (Auto) (None Seen) Urine Comment Blood Type B Positive Blood Type Recheck B Positive Antibody Screen NEGATIVE Crossmatch See Detail 09/29/24 Range/Units 11:03 WBC 9.71 (4.8-10.8) K/ul RBC 2.36 L (4.70-6.10) M/uL Hgb 7.6 L (14.0-18.0) g/dl Hct 22.7 L (42.0-52.0) % MCV 96.2 (80.0-100.0) fL MCH 32.2 (25.0-34.0) pg MCHC 33.5 (32.0-36.0) g/dL RDW Std Deviation 58.9 H (36.4-46.3) fL RDW Coeff of Lyudmila 17.0 H (11.5-14.5) % Plt Count 288 (130-400) K/uL MPV 8.8 L (9.4-12.4) fL Immature Gran % (Auto) 2.6 % Neut % (Auto) 68.0 % Lymph % (Auto) 13.3 % [place] % (Auto) 11.3 % Eos % (Auto) 4.1 % Baso % (Auto) 0.7 % Reticulocyte % (Auto) (0.50-2.00) % Neut # (Auto) 6.60 H (1.40-6.50) K/uL Lymph # (Auto) 1.29 (1.20-3.40) K/uL [place] # (Auto) 1.10 H (0.11-0.59) K/uL Eos # (Auto) 0.40 (0.00-0.50) K/uL Baso # (Auto) 0.07 (0.00-0.20) K/uL Reticulocyte # (0.020-0.100) 10^6/uL Immature Gran # (Auto) 0.25 H (0.01-0.20) K/uL Polychromasia 1+ Immature Retic Fraction (2.3-15.9) % Retic Hgb Content (28.2-36.6) pg PT 11.2 (9.0-12.0) Seconds INR 1.0 (0.9-1.1) Sodium 140 (136-145) mmol/L Potassium 3.8 (3.5-5.1) mmol/L Chloride 107 (98-107) mmol/L Carbon Dioxide 27 (21-32) mmol/L Anion Gap 6 (3-11) BUN 20 (6-23) mg/dl Creatinine 1.35 (0.6-1.4) mg/dl Est Cr Clr Drug Dosing 59.5 ml/min eGFR 57.90 BUN/Creatinine Ratio 14.8 (10-20) Glucose 125 H (70-99(Fasting)) mg/dl POC Glucose (70-99) mg/dl Calcium 9.7 (8.6-10.3) mg/dl Phosphorus 3.0 (2.5-4.9) mg/dl Magnesium 1.8 (1.7-2.4) mg/dl Iron 80 (35-175) mcg/dl TIBC 252 (250-450) mcg/dl Transferrin 180 L (200-360) mg/dl Transferrin % Sat 32 (20-50) % Ferritin 553.8 H (8-388) ng/ml Total Bilirubin 0.5 (0.2-1.0) mg/dl AST 16 (13-39) U/L ALT 14 (7-52) U/L Alkaline Phosphatase 107 H (34-104) U/L Lactate Dehydrogenase (86-244) U/L Troponin I High Sens 4.4 (0-20) pg/ml Total Protein 7.5 (6.0-8.3) gm/dl Albumin 4.2 (3.4-5.0) gm/dl Globulin 3.3 (2.5-4.0) gm/dl Albumin/Globulin Ratio 1.3 (0.9-2) Lipase 118 H (11-82) U/L Vitamin B12 (180-914) pg/ml Folate (>5.38) ng/ml Urine Color Urine Appearance (Clear) Urine pH (4.5-7.5) Ur Specific [place] (1.000-1.030) Urine Protein (Negative) Urine Glucose (UA) (Negative) Urine Ketones (Negative) Urine Blood (Negative) Urine Nitrite (Negative) Urine Bilirubin (Negative) Urine Urobilinogen (Negative) Ur Leukocyte Esterase (Negative) Urine WBC (Auto) (0-5) /hpf Urine RBC (Auto) (0-2) /hpf U Hyaline Cast (Auto) (0-2) /lpf U Epithel Cells (Auto) (0-2) /hpf Urine Bacteria (Auto) (None Seen) Urine Comment Blood Type Blood Type Recheck Antibody Screen Crossmatch Diagnostic Findings Chest X-Ray 09/29/24 11:02 XR chest 1V portable HISTORY: 64 years-old Male Chest pain, nonspecific acute chest pain COMPARISON: None TECHNIQUE: AP view of the chest FINDINGS: Cardiac silhouette is upper limits of normal in size. No pneumothorax, pleural effusion or lobar airspace consolidation. Nonspecific interstitial coarsening. Cervical spinal fusion hardware. Bones appear grossly intact. IMPRESSION: 1. Cardiomegaly without overt pulmonary edema. 2. Nonspecific coarsening of the interstitium is likely chronic, however progressed from 2009. ACT 112: Negative or not required by law. The above report was generated using voice recognition software. It may contain grammatical, syntax or spelling errors. Electronically signed by: Anson Cortez M.D. 09/29/2024 11:34 AM
--- NOTE | 2024-09-30 10:14 | Electrocardiogram Report ---
Test Reason : Blood Pressure : */* mmHG Vent. Rate : 65 BPM Atrial Rate : 65 BPM P-R Int : 164 ms QRS Dur : 98 ms QT Int : 392 ms P-R-T Axes : 35 3 21 degrees QTcB Int : 407 ms Normal sinus rhythm Normal ECG When compared with ECG of 25-Sep-2009 10:32, Otherwise no significant change Confirmed by Kavya Cote (Delilah) on 09/30/2024 10:13:58 AM Referred By: Confirmed By: Kavya Cote
--- NOTE | 2024-09-30 10:49 | Hospitalist Progress Note ---
Date of Service September 30, 2024 Assessment & Plan (1) Acute on chronic blood loss anemia: (2) Eosinophilic asthma: (3) Prediabetes: (4) CKD (chronic kidney disease), stage III: Plan: Baseline (5) Chronic respiratory failure with hypoxia, on home O2 therapy: (6) Pulmonary fibrosis: (7) HTN (hypertension): (8) Sleep apnea: (9) Chronic myeloid leukemia (CML), BCR/ABL-positive: Plan Patient with acute on chronic anemia, concern for possible GI blood loss. Okay MedSurg Transition to oral Protonix, evidence indicates that there is no significant difference between IV and p.o. PPI treatment. Patient tolerating other medications Patient may use own CPAP Monitor hemoglobin Conversation with Dr. Draper, GI. Much lower suspicion for GI bleeding. Suspect patient's anemia is due to his chemotherapeutic agents used for CML. Patient was just recently switched off of Gleevec for similar complaints. But will plan on doing EGD in a.m. to rule out upper GI pathology. Patient's on phone during bedside exam and conversation. Admission and Anticipated Discharge Date Admission Date: September 29, 2024 Subjective States he definitely feels better after transfusion. No new chest pain. Reports he uses CPAP at night. Physical Exam Physical Exam: Constitutional: Alert, nontoxic HEENT: Mucous membranes moist. Lungs: Decreased breath sounds, no wheezes CV: S1-S2, regular Abdomen: Soft, nontender, nondistended Extremities: No significant edema Neuro: No focal deficits Psych: Cooperative, normal mood Results & Data Results & Data Vital Signs (Past 12 Hours) Vital Signs Temp Pulse Pulse Resp BP Pulse Ox O2 Del Method 09/30/24 08:02 68 09/30/24 07:45 36.4 C L 71 18 124/72 94 Room Air 09/30/24 04:01 36.5 C 65 18 129/69 95 Room Air Diagnostic Findings Reviewed imaging, laboratory and diagnostic studies. Pertinent findings as below. Hemoglobin 7.7, post PRBCs BMP stable Magnesium 1.5 Iron studies noted Reviewed outside oncology notes
[2024-09-30] MEDS: MAGNESIUM OXIDE 400 MG TAB PO SCH (11:23)
[2024-09-30] MEDS: MAGNESIUM SULFATE / D5W 1 GM/100 ML BAG IV SCH (11:28)
[2024-09-30 14:54] LABS: Hematocrit (blood only) 24.6 % (42.0-52.0); Hemoglobin 8.4 g/dl (14.0-18.0)
[2024-10-01 08:32] LABS: Hematocrit (blood only) 22.2 % (42.0-52.0); Hemoglobin 7.7 g/dl (14.0-18.0); Mean Corpuscular Hemoglobin 32.0 pg (25.0-34.0); Mean Corpuscular Volume 92.1 fL (80.0-100.0); Platelet Count 240 K/uL (130-400); RDW Standard Deviation 61.6 fL (36.4-46.3); Red Blood Count 2.41 M/uL (4.70-6.10); White Blood Count 9.01 K/ul (4.8-10.8)
[2024-10-01 08:50] LABS: Anion Gap 5.0 (3-11); Blood Urea Nitrogen 10.0 mg/dl (6-23); Calcium 8.7 mg/dl (8.6-10.3); Carbon Dioxide 28.0 mmol/L (21-32); Chloride 106.0 mmol/L (98-107); Creatinine Clr Calc Pharmacy 78.0 ml/min; Glucose 122.0 mg/dl (70-99(Fasting)); Magnesium 1.8 mg/dl (1.7-2.4); Potassium 3.8 mmol/L (3.5-5.1); Sodium 139.0 mmol/L (136-145)
--- NOTE | 2024-10-01 11:33 | Anesthesiology Consultation ---
Date of Service October 01, 2024 Assessment & Plan ASA ASA4 Proposed Anesthesia Anesthesia Type: MAC Risk / Benefits Reviewed With: PT / POA / Parent / Guardian, Accepts Plan and Informed Consent Obtained History Surgery Operation Date: 10/01/24 16:30 Proposed Procedures p Esophagogastroduodenoscopy Dr. Draper - Leland Draper Jr, MD Height/Weight Height: 5 ft 6 in Weight: 99.8 kg Allergies Allergy/AdvReac Type Severity Reaction Status Date / Time bee venom protein (honey bee) Allergy Severe edema all Verified 09/29/24 11:33 over body modafinil Allergy Severe hallucinati Verified 09/29/24 11:33 ons atenolol Allergy Mild Verified 09/29/24 11:33 lisinopril AdvReac COUGH Unverified 09/29/24 11:33 Medications Home Medications Medication Instructions Recorded Confirmed Last Taken allopurinol 300 mg tablet 300 mg PO QAM 09/07/24 09/29/24 09/29/24 amlodipine 5 mg tablet 2.5 mg PO BID 09/07/24 09/29/24 09/29/24 ascorbate calcium (vitamin C) 500 500 mg PO DAILY 09/07/24 09/29/24 Unknown mg tablet aspirin 81 mg chewable tablet 81 mg PO DAILY 09/07/24 09/29/24 Unknown carvedilol 6.25 mg tablet 6.25 mg PO BID 09/07/24 09/29/24 09/29/24 diphenoxylate-atropine 2.5 1 tab PO QID PRN diarrhea 09/07/24 09/29/24 Unknown mg-0.025 mg tablet escitalopram oxalate 10 mg tablet 10 mg PO DAILY 09/07/24 09/29/24 Unknown lorazepam 1 mg tablet 0.5 mg PO TID PRN Anxiety 09/07/24 09/29/24 Unknown metformin 500 mg tablet 500 mg PO BID 09/07/24 09/29/24 09/29/24 multivitamin 1 tab PO DAILY 09/07/24 09/29/24 Unknown omeprazole 40 mg capsule,delayed 40 mg PO DAILYBB 09/07/24 09/29/24 09/29/24 release tamsulosin 0.4 mg capsule (Flomax) 0.4 mg PO QAM 09/07/24 09/29/24 09/29/24 valsartan 320 mg tablet 320 mg PO QAM 09/07/24 09/29/24 09/29/24 albuterol sulfate 90 mcg/actuation 1 puff inhalation QID PRN 09/29/24 09/29/24 Unknown aerosol inhaler Shortness Of Breath Or Wheezing atorvastatin 20 mg tablet 20 mg PO QAM 09/29/24 09/29/24 09/29/24 chlorthalidone 25 mg tablet 25 mg PO QAM 09/29/24 09/29/24 09/29/24 ferrous sulfate 325 mg (65 mg 325 mg PO DAILY 09/29/24 09/29/24 Unknown iron) tablet venlafaxine 37.5 mg 37.5 mg PO QAM 09/29/24 09/29/24 09/29/24 capsule,extended release 24 hr Active Medications Generic Name Dose Route Start Last Admin Trade Name Freq PRN Reason Stop Dose Admin Allopurinol 300 mg 09/30/24 09:00 10/01/24 08:19 Allopurinol 300 Mg Tab PO 10/30/24 08:59 300 mg QAM ART Administration Amlodipine Besylate 2.5 mg 09/29/24 21:00 10/01/24 08:19 Amlodipine Besylate 5 Mg Tab PO 10/29/24 20:59 2.5 mg BID ART Administration Atorvastatin Calcium 20 mg 09/30/24 09:00 10/01/24 08:19 Atorvastatin 20 Mg Tab PO 10/30/24 08:59 20 mg QAM ART Administration Carvedilol 6.25 mg 09/29/24 21:00 10/01/24 08:18 Carvedilol 6.25 Mg Tab PO 10/29/24 20:59 6.25 mg BID ART Administration Escitalopram Oxalate 10 mg 09/30/24 09:00 10/01/24 08:19 Escitalopram Oxalate 10 Mg Tab PO 10/30/24 08:59 10 mg DAILY ART Administration Sodium Chloride 1,000 mls @ 60 mls/hr 09/29/24 13:45 10/01/24 08:20 Nss IV 10/02/24 13:44 60 mls/hr .[id number] ART Administration Magnesium Oxide 400 mg 09/30/24 10:45 10/01/24 08:18 Magnesium Oxide 400 Mg Tab PO 10/30/24 10:44 400 mg BID ART Administration Pantoprazole Sodium 40 mg 09/30/24 21:00 10/01/24 09:14 Pantoprazole 40 Mg Tab PO 10/30/24 20:59 40 mg BID ART Administration Tamsulosin HCl 0.4 mg 09/30/24 09:00 10/01/24 08:18 Tamsulosin Hcl 0.4 Mg Cap PO 10/30/24 08:59 0.4 mg QAM ART Administration Valsartan 320 mg 09/30/24 09:00 10/01/24 08:18 Valsartan 80 Mg Tab PO 10/30/24 08:59 320 mg QAM ART Administration Venlafaxine HCl 37.5 mg 09/30/24 09:00 10/01/24 08:20 Venlafaxine Hcl Xr 37.5 Mg Capxr PO 10/30/24 08:59 37.5 mg QAM ART Administration NPO Date Last Intake of Fluids: 10/01/24 Time Last Intake of Fluids: 08:00 Last Intake of Fluids Comment: sip with meds this am Date Last Intake of Solids: 09/28/24 Time Last Intake of Solids: 23:59 Last Intake of Solids Comment: patient states last ate prior to hospital admission. Past Medical History Medical History Eosinophilic asthma Prediabetes CKD (chronic kidney disease), stage III Chronic respiratory failure with hypoxia, on home O2 therapy Pulmonary fibrosis HTN (hypertension) Sleep apnea Iron deficiency anemia Chronic myeloid leukemia (CML), BCR/ABL-positive Exercise / Class Metabolic Activity II 4-5 Yardwork/Stairs/Walk up hill Past Surgical History Surgical History H/O colonoscopy 10+ yrs ago Past Anesthesia History No Hx of Anesthesia Complications and No Family Hx of Anesthesia Complications History of PONV No Hx of PONV and No Hx of Motion Sickness Social History Smoking Status: Never smoker Do You Dip or Chew Tobacco: No Hx Alcohol Use: No Hx Substance Use: No Physical Exam Vital Signs Last Vital Signs Temp 36.9 C 10/01/24 11:12 Pulse 66 10/01/24 11:12 Resp 16 10/01/24 11:12 BP 138/68 10/01/24 11:12 Pulse Ox 97 10/01/24 11:12 O2 Del Method Room Air 10/01/24 11:12 Constitutional no acute distress ENMT Mouth: + dentition abnormality (lower multiple missing teeth; few remaining incisors - none loose), + dentures and + edentulous (upper edentulous) Thyromental Distance: > or= 3.5 Finger Breadths Mallampati Class: II Neck normal visual inspection Respiratory normal respiratory effort; no respiratory distress Auscultation: lungs clear to auscultation bilaterally Cardiovascular Rate/Rhythm: regular rate and regular rhythm Heart Sounds: no murmur Musculoskeletal Spine: normal cervical ROM Psychiatric Orientation: alert and oriented x 3 Testing Laboratory Results 10/01/24 07:50 10/01/24 07:50 PT 11.2 Seconds (9.0-12.0) 09/29/24 11:03 INR 1.0 (0.9-1.1) 09/29/24 11:03 Urine Color Yellow 09/29/24 19:06 Urine Appearance Clear (Clear) 09/29/24 19:06 Urine pH 5.0 (4.5-7.5) 09/29/24 19:06 Ur Specific Steens 1.016 (1.000-1.030) 09/29/24 19:06 Urine Protein Negative (Negative) 09/29/24 19:06 Urine Glucose (UA) Negative (Negative) 09/29/24 19:06 Urine Ketones Negative (Negative) 09/29/24 19:06 Urine Nitrite Negative (Negative) 09/29/24 19:06 Ur Leukocyte Esterase 1+ (Negative) H 09/29/24 19:06 Urine WBC (Auto) 6-10 /hpf (0-5) H 09/29/24 19:06 Urine RBC (Auto) 0-2 /hpf (0-2) 09/29/24 19:06 U Hyaline Cast (Auto) 3-5 /lpf (0-2) H 09/29/24 19:06 U Epithel Cells (Auto) 0-2 /hpf (0-2) 09/29/24 19:06 Urine Bacteria (Auto) None Seen (None Seen) 09/29/24 19:06 Blood Type B Positive 09/29/24 11:06 Antibody Screen NEGATIVE 09/29/24 11:06 Day of Procedure Evaluation. Date of Surgery October 01, 2024 Height/Weight Height: 5 ft 6 in Weight: 99.8 kg Vital Signs Last Vital Signs Temp 36.9 C 10/01/24 11:12 Pulse 66 10/01/24 11:12 Resp 16 10/01/24 11:12 BP 138/68 10/01/24 11:12 Pulse Ox 97 10/01/24 11:12 O2 Del Method Room Air 10/01/24 11:12 Allergies Allergy/AdvReac Type Severity Reaction Status Date / Time bee venom protein (honey bee) Allergy Severe edema all Verified 09/29/24 11:33 over body modafinil Allergy Severe hallucinati Verified 09/29/24 11:33 ons atenolol Allergy Mild Verified 09/29/24 11:33 lisinopril AdvReac COUGH Unverified 09/29/24 11:33 Medications Home Medications Medication Instructions Recorded Confirmed Last Taken allopurinol 300 mg tablet 300 mg PO QAM 09/07/24 09/29/24 09/29/24 amlodipine 5 mg tablet 2.5 mg PO BID 09/07/24 09/29/24 09/29/24 ascorbate calcium (vitamin C) 500 500 mg PO DAILY 09/07/24 09/29/24 Unknown mg tablet aspirin 81 mg chewable tablet 81 mg PO DAILY 09/07/24 09/29/24 Unknown carvedilol 6.25 mg tablet 6.25 mg PO BID 09/07/24 09/29/24 09/29/24 diphenoxylate-atropine 2.5 1 tab PO QID PRN diarrhea 09/07/24 09/29/24 Unknown mg-0.025 mg tablet escitalopram oxalate 10 mg tablet 10 mg PO DAILY 09/07/24 09/29/24 Unknown lorazepam 1 mg tablet 0.5 mg PO TID PRN Anxiety 09/07/24 09/29/24 Unknown metformin 500 mg tablet 500 mg PO BID 09/07/24 09/29/24 09/29/24 multivitamin 1 tab PO DAILY 09/07/24 09/29/24 Unknown omeprazole 40 mg capsule,delayed 40 mg PO DAILYBB 09/07/24 09/29/24 09/29/24 release tamsulosin 0.4 mg capsule (Flomax) 0.4 mg PO QAM 09/07/24 09/29/24 09/29/24 valsartan 320 mg tablet 320 mg PO QAM 09/07/24 09/29/24 09/29/24 albuterol sulfate 90 mcg/actuation 1 puff inhalation QID PRN 09/29/24 09/29/24 Unknown aerosol inhaler Shortness Of Breath Or Wheezing atorvastatin 20 mg tablet 20 mg PO QAM 09/29/24 09/29/24 09/29/24 chlorthalidone 25 mg tablet 25 mg PO QAM 09/29/24 09/29/24 09/29/24 ferrous sulfate 325 mg (65 mg 325 mg PO DAILY 09/29/24 09/29/24 Unknown iron) tablet venlafaxine 37.5 mg 37.5 mg PO QAM 09/29/24 09/29/24 09/29/24 capsule,extended release 24 hr Active Medications Generic Name Dose Route Start Last Admin Trade Name Freq PRN Reason Stop Dose Admin Allopurinol 300 mg 09/30/24 09:00 10/01/24 08:19 Allopurinol 300 Mg Tab PO 10/30/24 08:59 300 mg QAM ART Administration Amlodipine Besylate 2.5 mg 09/29/24 21:00 10/01/24 08:19 Amlodipine Besylate 5 Mg Tab PO 10/29/24 20:59 2.5 mg BID ART Administration Atorvastatin Calcium 20 mg 09/30/24 09:00 10/01/24 08:19 Atorvastatin 20 Mg Tab PO 10/30/24 08:59 20 mg QAM ART Administration Carvedilol 6.25 mg 09/29/24 21:00 10/01/24 08:18 Carvedilol 6.25 Mg Tab PO 10/29/24 20:59 6.25 mg BID ART Administration Escitalopram Oxalate 10 mg 09/30/24 09:00 10/01/24 08:19 Escitalopram Oxalate 10 Mg Tab PO 10/30/24 08:59 10 mg DAILY ART Administration Sodium Chloride 1,000 mls @ 60 mls/hr 09/29/24 13:45 10/01/24 08:20 Nss IV 10/02/24 13:44 60 mls/hr .[id number] ART Administration Magnesium Oxide 400 mg 09/30/24 10:45 10/01/24 08:18 Magnesium Oxide 400 Mg Tab PO 10/30/24 10:44 400 mg BID ART Administration Pantoprazole Sodium 40 mg 09/30/24 21:00 10/01/24 09:14 Pantoprazole 40 Mg Tab PO 10/30/24 20:59 40 mg BID ART Administration Tamsulosin HCl 0.4 mg 09/30/24 09:00 10/01/24 08:18 Tamsulosin Hcl 0.4 Mg Cap PO 10/30/24 08:59 0.4 mg QAM ART Administration Valsartan 320 mg 09/30/24 09:00 10/01/24 08:18 Valsartan 80 Mg Tab PO 10/30/24 08:59 320 mg QAM ART Administration Venlafaxine HCl 37.5 mg 09/30/24 09:00 10/01/24 08:20 Venlafaxine Hcl Xr 37.5 Mg Capxr PO 10/30/24 08:59 37.5 mg QAM ART Administration Past Anesthesia History No Hx of Anesthesia Complications and No Family Hx of Anesthesia Complications History of PONV No Hx of PONV and No Hx of Motion Sickness NPO Date Last Intake of Fluids: 10/01/24 Time Last Intake of Fluids: 08:00 Last Intake of Fluids Comment: sip with meds this am Date Last Intake of Solids: 09/28/24 Time Last Intake of Solids: 23:59 Last Intake of Solids Comment: patient states last ate prior to hospital admission. Home Medications Home Medications Medication Instructions Recorded Confirmed Last Taken allopurinol 300 mg tablet 300 mg PO QAM 09/07/24 09/29/24 09/29/24 amlodipine 5 mg tablet 2.5 mg PO BID 09/07/24 09/29/24 09/29/24 ascorbate calcium (vitamin C) 500 500 mg PO DAILY 09/07/24 09/29/24 Unknown mg tablet aspirin 81 mg chewable tablet 81 mg PO DAILY 09/07/24 09/29/24 Unknown carvedilol 6.25 mg tablet 6.25 mg PO BID 09/07/24 09/29/24 09/29/24 diphenoxylate-atropine 2.5 1 tab PO QID PRN diarrhea 09/07/24 09/29/24 Unknown mg-0.025 mg tablet escitalopram oxalate 10 mg tablet 10 mg PO DAILY 09/07/24 09/29/24 Unknown lorazepam 1 mg tablet 0.5 mg PO TID PRN Anxiety 09/07/24 09/29/24 Unknown metformin 500 mg tablet 500 mg PO BID 09/07/24 09/29/24 09/29/24 multivitamin 1 tab PO DAILY 09/07/24 09/29/24 Unknown omeprazole 40 mg capsule,delayed 40 mg PO DAILYBB 09/07/24 09/29/24 09/29/24 release tamsulosin 0.4 mg capsule (Flomax) 0.4 mg PO QAM 09/07/24 09/29/24 09/29/24 valsartan 320 mg tablet 320 mg PO QAM 09/07/24 09/29/24 09/29/24 albuterol sulfate 90 mcg/actuation 1 puff inhalation QID PRN 09/29/24 09/29/24 Unknown aerosol inhaler Shortness Of Breath Or Wheezing atorvastatin 20 mg tablet 20 mg PO QAM 09/29/24 09/29/24 09/29/24 chlorthalidone 25 mg tablet 25 mg PO QAM 09/29/24 09/29/24 09/29/24 ferrous sulfate 325 mg (65 mg 325 mg PO DAILY 09/29/24 09/29/24 Unknown iron) tablet venlafaxine 37.5 mg 37.5 mg PO QAM 09/29/24 09/29/24 09/29/24 capsule,extended release 24 hr Active Medications Generic Name Dose Route Start Last Admin Trade Name Alexa PRN Reason Stop Dose Admin Allopurinol 300 mg 09/30/24 09:00 10/01/24 08:19 Allopurinol 300 Mg Tab PO 10/30/24 08:59 300 mg QAM ART Administration Amlodipine Besylate 2.5 mg 09/29/24 21:00 10/01/24 08:19 Amlodipine Besylate 5 Mg Tab PO 10/29/24 20:59 2.5 mg BID ART Administration Atorvastatin Calcium 20 mg 09/30/24 09:00 10/01/24 08:19 Atorvastatin 20 Mg Tab PO 10/30/24 08:59 20 mg QAM ART Administration Carvedilol 6.25 mg 09/29/24 21:00 10/01/24 08:18 Carvedilol 6.25 Mg Tab PO 10/29/24 20:59 6.25 mg BID ART Administration Escitalopram Oxalate 10 mg 09/30/24 09:00 10/01/24 08:19 Escitalopram Oxalate 10 Mg Tab PO 10/30/24 08:59 10 mg DAILY ART Administration Sodium Chloride 1,000 mls @ 60 mls/hr 09/29/24 13:45 10/01/24 08:20 Nss IV 10/02/24 13:44 60 mls/hr .[id number] ART Administration Magnesium Oxide 400 mg 09/30/24 10:45 10/01/24 08:18 Magnesium Oxide 400 Mg Tab PO 10/30/24 10:44 400 mg BID ART Administration Pantoprazole Sodium 40 mg 09/30/24 21:00 10/01/24 09:14 Pantoprazole 40 Mg Tab PO 10/30/24 20:59 40 mg BID ART Administration Tamsulosin HCl 0.4 mg 09/30/24 09:00 10/01/24 08:18 Tamsulosin Hcl 0.4 Mg Cap PO 10/30/24 08:59 0.4 mg QAM ART Administration Valsartan 320 mg 09/30/24 09:00 10/01/24 08:18 Valsartan 80 Mg Tab PO 10/30/24 08:59 320 mg QAM ART Administration Venlafaxine HCl 37.5 mg 09/30/24 09:00 10/01/24 08:20 Venlafaxine Hcl Xr 37.5 Mg Capxr PO 10/30/24 08:59 37.5 mg QAM ART Administration Exercise / Class Metabolic Activity Metabolic Activity: II 4-5 Yardwork/Stairs/Walk up hill Physical Exam Constitutional: no acute distress Mouth: + dentition abnormality (lower multiple missing teeth; few remaining incisors - none loose), + dentures and + edentulous (upper edentulous) Thyromental Distance: > or= 3.5 Finger Breadths Mallampati Class: II Neck: + visual inspection normal Respiratory: + respiratory effort normal and + clear to auscultation bilaterally; no respiratory distress Cardiovascular: + regular rate and + regular rhythm; no murmur Musculoskeletal: no limited cervical ROM Psychiatric: + alert and + oriented x 3 ASA ASA4 Proposed Anesthesia Proposed Anesthesia: MAC Risk / Benefits Reviewed With: PT / POA / Parent / Guardian, Accepts Plan and Informed Consent Obtained
--- NOTE | 2024-10-01 11:56 | History & Physical Report ---
Date of Service October 01, 2024 Assessment & Plan (1) Acute on chronic blood loss anemia: Plan: Pleasant man for EGD. Procedure and risks discussed. He agrees (2) Epigastric pain: Admission and Anticipated Discharge Date Admission Date: September 29, 2024 History of Present Illness Chief Complaint: epigastric pain, anemia Primary Care Provider: Boogie Dsouza PA-C 64 year old man with CML and chronic anemia admitted with anemia and epigastric pain. We plan EGD Allergies Allergy/AdvReac Type Severity Reaction Status Date / Time bee venom protein (honey bee) Allergy Severe edema all Verified 09/29/24 11:33 over body modafinil Allergy Severe hallucinati Verified 09/29/24 11:33 ons atenolol Allergy Mild Verified 09/29/24 11:33 lisinopril AdvReac COUGH Unverified 09/29/24 11:33 Home Medications Medication Instructions Recorded Confirmed Type allopurinol 300 mg tablet 300 mg PO QAM 09/07/24 09/29/24 History amlodipine 5 mg tablet 2.5 mg PO BID 09/07/24 09/29/24 History ascorbate calcium (vitamin C) 500 500 mg PO DAILY 09/07/24 09/29/24 History mg tablet aspirin 81 mg chewable tablet 81 mg PO DAILY 09/07/24 09/29/24 History carvedilol 6.25 mg tablet 6.25 mg PO BID 09/07/24 09/29/24 History diphenoxylate-atropine 2.5 1 tab PO QID PRN diarrhea 09/07/24 09/29/24 History mg-0.025 mg tablet escitalopram oxalate 10 mg tablet 10 mg PO DAILY 09/07/24 09/29/24 History lorazepam 1 mg tablet 0.5 mg PO TID PRN Anxiety 09/07/24 09/29/24 History metformin 500 mg tablet 500 mg PO BID 09/07/24 09/29/24 History multivitamin 1 tab PO DAILY 09/07/24 09/29/24 History omeprazole 40 mg capsule,delayed 40 mg PO DAILYBB 09/07/24 09/29/24 History release tamsulosin 0.4 mg capsule (Flomax) 0.4 mg PO QAM 09/07/24 09/29/24 History valsartan 320 mg tablet 320 mg PO QAM 09/07/24 09/29/24 History albuterol sulfate 90 mcg/actuation 1 puff inhalation QID PRN 09/29/24 09/29/24 History aerosol inhaler Shortness Of Breath Or Wheezing atorvastatin 20 mg tablet 20 mg PO QAM 09/29/24 09/29/24 History chlorthalidone 25 mg tablet 25 mg PO QAM 09/29/24 09/29/24 History ferrous sulfate 325 mg (65 mg 325 mg PO DAILY 09/29/24 09/29/24 History iron) tablet venlafaxine 37.5 mg 37.5 mg PO QAM 09/29/24 09/29/24 History capsule,extended release 24 hr Past Med/Surg History Problem List GI bleed (Acute) Symptomatic anemia (Acute) Epigastric pain Acute on chronic blood loss anemia (Acute) Dyspnea Medical History Eosinophilic asthma Prediabetes CKD (chronic kidney disease), stage III Chronic respiratory failure with hypoxia, on home O2 therapy Pulmonary fibrosis HTN (hypertension) Sleep apnea Iron deficiency anemia Chronic myeloid leukemia (CML), BCR/ABL-positive Surgical History H/O colonoscopy 10+ yrs ago Social History Smoking Status: Never smoker Do You Dip or Chew Tobacco: No; Hx Alcohol Use: No Hx Substance Use: No Preferred Language: [place] Communication Ability: Effective Auto Design Detailer Required: No Beliefs That Will Affect Care: None Current Living Situation: Spouse Other Information That Helps Us Care for You: No Feels Safe at Home: No Is there a partner from a previous relationship who is making you feel unsafe now?: No Any Concerns about Your Family Situation: No Would You Like to Speak to Someone About Your Situation: No Safety Concerns: Feels Safe At This Time Assistive Devices: Denture - Upper and Glasses Physical Exam Constitutional: WD/WN, vitals as above Respiratory: normal respiratory effort, lungs clear to auscultation Cardiovascular: RRR, no murmur, no edema Gastrointestinal (Abdomen): normal bowel sounds, soft, nontender, no hepatosplenomegaly ASA Classification ASA ASA2 Results & Data Vital Signs (Past 12 Hours) Vital Signs Temp Pulse Pulse Resp BP Pulse Ox O2 Del Method 10/01/24 11:12 36.9 C 66 16 138/68 97 Room Air 10/01/24 07:19 36.4 C L 60 16 117/78 94 Room Air Code Status & VTE Plan VTE Prophylaxis Plan VTE Prophylaxis will be ordered: Yes
--- NOTE | 2024-10-01 12:18 | GI REPORT ---
[facility] Patient: CHARLETTE WRIGHT : 1960 Sex at : Male Age: 64 Years Procedure: Upper GI endoscopy Date: 10/01/2024 Attending Physician: Leland Draper MD Referring MD: Boogie Dsouza Pa-c Indications: - Iron deficiency anemia Medications: - Monitored Anesthesia Care - Propofol per Anesthesia - See the Anesthesia note for documentation of the administered medications Complications: - No immediate complications. Estimated Blood Loss: - Estimated blood loss: None. Procedure: - ASA Grade Assessment: III - A patient with severe systemic disease. - The egd scope was introduced through the mouth and advanced to the second part of the duodenum. - The upper GI endoscopy was accomplished without difficulty. - The patient tolerated the procedure well. Findings: - The examined esophagus was normal. - Diffuse moderate inflammation characterized by erythema and erosions was found in the gastric antrum. This was in a linear fashion. It could be evidence of Gastric Antral Vascular Ectasia. Biopsies were taken with a cold forceps for histology. - The exam of the stomach was otherwise normal. - The examined duodenum was normal. Impression: - Normal esophagus. - Gastritis, characterized by erythema and erosions. Biopsied. This could possibly be GAVE and if so may contribute to his anemia and consider APC - Normal examined duodenum. Recommendation: - Return patient to [facility] for ongoing care. Procedure Code(s): - 25241, Esophagogastroduodenoscopy, flexible, transoral; with biopsy, single or multiple Diagnosis Code(s): - D50.9, Iron deficiency anemia, unspecified - K29.70, Gastritis, unspecified, without bleeding CPT(R) - 2023 copyright [employer]. All Rights Reserved. The CPT codes, CCI edits and ICD codes generated are intended as suggestions and were generated based on input data. These codes are preliminary and upon physician coder review may be revised to meet current compliance and payer requirements. The provider is responsible for the final determination of appropriate codes, and modifiers. Dr. Leland Draper MD This document has been electronically signed. Note Initiated:10/01/2024 Note Completed:10/01/2024 12:17 PM [id number]
[2024-10-01 12:45] VITALS: RESP 16
[2024-10-01] MEDS: LIDOCAINE 2% 2 ML VIAL/AMP(20MG/ML) INFIL ONE (13:17)
[2024-10-01] MEDS: PROPOFOL IV EMULSION 10 MG/ML 20 ML VIAL IV ONE (13:17)
[2024-10-01 14:15] VITALS: TEMP 98.1; O2SAT 98
--- NOTE | 2024-10-01 14:25 | Discharge Summary ---
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 Patient tested occult blood positive in the stool in the ED and was referred for further evaluation. Patient was admitted to the hospital. He was transfused 1 unit of packed red blood cells. He was placed on IV Protonix initially. GI consultation was obtained. Posttransfusion his hemoglobin remained stable. Was evaluated by GI and recommended EGD. On the day of discharge patient underwent EGD. Fines were consistent with gastritis and suspected GAVE. There was no active bleeding. Recommended patient advance his diet continue on PPI 2 times daily and could follow-up outpatient. Patient seen after EGD doing well. Tolerating diet. Hemoglobin has been stable. 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 May need to monitor hemoglobin intermittently outpatient and plan for outpatient transfusions. Notes For Next Care Provider Monitor hemoglobin, anticipate potential need for outpatient transfusions due to chronic blood loss in the setting of chronic anemia from his CML Medication Changes From Visit Omeprazole 2 times daily Chlorthalidone discontinued Admission HPI Per Admitting Provider 64 year old man with CML and chronic anemia admitted with anemia and epigastric pain. We plan EGD Admission Exam Per Admitting Provider See H&P Discharge Exam Constitutional: Alert HEENT: Mucous membranes moist. Lungs: Clear to auscultation, decreased, no wheezes rales or rhonchi CV: S1-S2, regular Abdomen: Soft, nontender, nondistended Extremities: No significant edema Neuro: No focal deficits Psych: Cooperative, normal mood Updated Medication List Medication Instructions Recorded Confirmed Type allopurinol 300 mg tablet 300 mg PO QAM 09/07/24 09/29/24 History amlodipine 5 mg tablet 2.5 mg PO BID 09/07/24 09/29/24 History ascorbate calcium (vitamin C) 500 500 mg PO DAILY 09/07/24 09/29/24 History mg tablet aspirin 81 mg chewable tablet 81 mg PO DAILY 09/07/24 09/29/24 History carvedilol 6.25 mg tablet 6.25 mg PO BID 09/07/24 09/29/24 History diphenoxylate-atropine 2.5 1 tab PO QID PRN diarrhea 09/07/24 09/29/24 History mg-0.025 mg tablet escitalopram oxalate 10 mg tablet 10 mg PO DAILY 09/07/24 09/29/24 History lorazepam 1 mg tablet 0.5 mg PO TID PRN Anxiety 09/07/24 09/29/24 History metformin 500 mg tablet 500 mg PO BID 09/07/24 09/29/24 History multivitamin 1 tab PO DAILY 09/07/24 09/29/24 History tamsulosin 0.4 mg capsule (Flomax) 0.4 mg PO QAM 09/07/24 09/29/24 History valsartan 320 mg tablet 320 mg PO QAM 09/07/24 09/29/24 History albuterol sulfate 90 mcg/actuation 1 puff inhalation QID PRN 09/29/24 09/29/24 History aerosol inhaler Shortness Of Breath Or Wheezing atorvastatin 20 mg tablet 20 mg PO QAM 09/29/24 09/29/24 History chlorthalidone 25 mg tablet 25 mg PO QAM 09/29/24 09/29/24 History ferrous sulfate 325 mg (65 mg 325 mg PO DAILY 09/29/24 09/29/24 History iron) tablet venlafaxine 37.5 mg 37.5 mg PO QAM 09/29/24 09/29/24 History capsule,extended release 24 hr omeprazole 40 mg capsule,delayed 40 mg PO BID #60 caps 10/01/24 Rx release Hospital Stay Data Consultations 09/29/24 11:45 ED Decision to Admit Stat 09/29/24 12:40 Consult Gastroenterology Routine Procedures Performed Operation Date: 10/01/24 16:30 Actual Procedures p EGD Biopsy Cytology - Leland Draper Jr, MD Diagnostic Imagining Performed Reviewed imaging, laboratory and diagnostic studies. Pertinent findings as below. Hemoglobin 7.7, stable BMP within normal ranges Creatinine 1.03 EGD for shows findings of gastritis and some erythema and erosions in the gastric antrum which could be GAVE. Biopsies were obtained. No active bleeding. Pending Results Patient Have Any Pending Studies at Discharge: No Discharge Instructions Given to Patient (Per Discharging Provider) Follow-up of biopsy results with your PCP or take out waitress Continue to monitor your hemoglobin outpatient, may need intermittent transfusions Continue to follow with your oncologist for your CML Total Time Total Time Spent Total Time Spent (In Minutes): 35
[2024-10-01 14:50] VITALS: BP 116/72; PULSE 60
--- NOTE | 2024-10-01 15:33 | Anesthesiology Progress Note ---
Date of Service October 01, 2024 Anesthesia Post Procedure Vital Signs Vital Signs: Temp Pulse Pulse Resp BP BP Pulse Ox 10/01/24 14:46 36.7 C 60 62 16 129/72 116/72 98 10/01/24 14:01 36.7 C 62 16 129/72 98 10/01/24 13:00 36.8 C 60 16 123/68 95 10/01/24 12:45 57 L 16 148/74 H 95 10/01/24 12:30 60 20 136/71 95 10/01/24 12:15 61 20 122/66 95 10/01/24 11:12 36.9 C 66 16 138/68 97 10/01/24 07:19 36.4 C L 60 16 117/78 94 09/30/24 23:26 36.4 C L 65 16 142/77 H 96 09/30/24 21:02 62 134/74 O2 Del Method 10/01/24 14:46 10/01/24 14:01 Room Air 10/01/24 13:00 Room Air 10/01/24 12:45 Room Air 10/01/24 12:30 Room Air 10/01/24 12:15 Room Air 10/01/24 11:12 Room Air 10/01/24 07:19 Room Air 09/30/24 23:26 Room Air 09/30/24 21:02 Pain Intensity Abdomen: Pain Intensity: 3 Transfer of Care Handoff Completed per policy Notes Mental Status: alert / awake / arousable and participated in evaluation Nausea / Vomiting: adequately controlled Pain: adequately controlled Airway Patency, RR, SpO2: stable & adequate BP & HR: stable & adequate Hydration State: stable & adequate Anesthetic Complications: no major complications apparent and Pt Satisfied with anesthetic care
== END 2024-10-01 16:00 | disposition home or self-care (01) | DRG 811 ==
LOC: ED 10:46 → EDINP 12:44 → SUATTDRO 12:44 → 2W 15:54 → 3W 09-30 12:33